=== PATIENT | male | born 1965 | race Caucasian/White ===

== ENCOUNTER 2020-08-04 17:38 | Outpatient (REF) | payer MEDICAID, SELFPAY ==
[2020-08-04 13:50] LABS: Calculated LDL 142 mg/dL (<100); Cholesterol 221 mg/dL (<200); HDL Cholesterol 49 mg/dL (40-60); Triglyceride 151 mg/dL (<150)
[2020-08-04 13:57] LABS: Lipase 175 U/L (73-393)
[2020-08-04 21:51] LABS: PSA, Screening 0.3 ng/mL
== END 2020-08-04 17:39 | disposition home or self-care (01) ==
LOC: NCHCN 17:38
PROVIDERS: PCP Family Medicine; Visit Provider Nurse Practitioner Community Health
DX: R74.8 Abnormal levels of other serum enzymes (principal); Z13.220 Encounter for screening for lipoid disorders; Z12.5 Encounter for screening for malignant neoplasm of prostate
CPT/HCPCS: 80061; 83690; 84153

== ENCOUNTER 2022-12-21 16:47 | Outpatient (REF) | payer OTHER, MEDICAID, SELFPAY ==
[2022-12-21 15:43] LABS: HGB 15.4 g/dL (13.5-17.5); MCH 33.4 pg (27.0-33.0); MCHC 34.2 % (32.0-36.0); MCV 98 fL (80-95); MPV 11.1 fL (8.0-11.0); Platelet Count 242 10^3/uL (130-400); RBC 4.61 10^6/uL (4.36-5.78); RDW 11.7 % (11.8-14.1); RDW-SD 42.1 fL; WBC 4.56 10^3/uL (4.4-10.8)
[2022-12-21 15:55] LABS: ALT 43 U/L (16-63); AST 33 U/L (15-37); Albumin 3.8 g/dL (3.4-5.0); Alkaline Phosphatase 67 U/L (46-116); Anion Gap 6.5 mmol/L (3-11); BUN 18 mg/dL (7-18); Bilirubin, Total 0.9 mg/dL (0.2-1.0); CO2 27.5 mmol/L (21.0-32.0); CREATININE 0.9 mg/dL (0.70-1.30); Calcium 8.8 mg/dL (8.5-10.1); Calculated LDL 137 mg/dL (<100); Chloride 105 mmol/L (98-107); Cholesterol 215 mg/dL (<200); Estimated GFR 98.38 (mL/min/1.73m2); Glucose 92 mg/dL (74-106); HDL Cholesterol 58 mg/dL (40-60); Sodium 139 mmol/L (136-145); Triglyceride 103 mg/dL (<150)
[2022-12-21 22:47] LABS: PSA, Screening 0.3 ng/mL (<=3.5)
== END 2022-12-21 16:48 | disposition home or self-care (01) ==
LOC: NCHCN 16:47
PROVIDERS: PCP Family Medicine; Visit Provider Family Medicine
DX: Z00.00 Encounter for general adult medical examination without abnormal findings (principal); Z13.220 Encounter for screening for lipoid disorders; Z12.5 Encounter for screening for malignant neoplasm of prostate
CPT/HCPCS: 80053; 80061; 84153; 85027